=== PATIENT | female | born 1950 | race African-American/Black ===

== ENCOUNTER 2016-05-30 02:55 | Emergency (ER) | payer MEDICARE, OTHER ==
[~2016-05-30] VITALS: Ht 165.1 cm; Wt 180.1 kg
[2016-05-30 03:23] VITALS: BP 158/77
[2016-05-30] MEDS ORDERED: METFORMIN HCL500 M1 ORAL (03:31)
[2016-05-30] MEDS ORDERED: XOPENEX HFA15 GM IH (03:31)
[2016-05-30] MEDS ORDERED: MONTELUKAST SOD10 MG ORAL (03:31)
[2016-05-30] MEDS ORDERED: HYDROCHLOROTHIA25 MG ORAL (03:31)
[2016-05-30] MEDS ORDERED: CELEBREX200 MG ORAL (03:31)
[2016-05-30] MEDS ORDERED: MAPAP325 MG/10. PO (03:31)
[2016-05-30] MEDS ORDERED: NEXIUM5 MG ORAL (03:31)
[2016-05-30] MEDS ORDERED: IBUPROFEN200 MG ORAL (03:31)
[2016-05-30] MEDS ORDERED: ASPIRIN81 MG ORAL (03:31)
[2016-05-30] MEDS ORDERED: QVAR7.3 G2 IH (03:31)
--- NOTE | 2016-05-30 03:41 | Emergency Room Report ---
History of Present Illness General Chief Complaint: Neck Pain Source: Patient Present Illness HPI 66 YO F with severe right sided neck spasm for 2-3 days. Started when she woke up that morning. Worse with movement. Worse with looking to right. Denies fever /chills, headache, change in/blurry vision. Allergies: Coded Allergies: No Known Allergies (Unverified , 05/30/16) Patient History Past Medical History: HTN Past Surgical History: none Pertinent Family History: none Social History: Denies: alcohol use, drug use, smoking Now: No Immunizations: UTD Reviewed Nursing Documentation: PMH: Agreed, PSxH: Agreed Nursing Documentation-PMH Past Medical History: No History, Except For Hx Hypertension: Yes Hx Asthma: Yes Hx Diabetes: Yes Review of Systems All Other Systems: negative except mentioned in HPI Physical Exam Vital Signs Date Time Temp Pulse Resp B/P Pulse Ox O2 Delivery O2 Flow Rate FiO2 05/30/16 03:07 97.9 103 26 131/72 100 Room Air Sp02 EP Interpretation: reviewed, normal General Appearance: normal inspection, well appearing, no apparent distress, alert, GCS 15, non-toxic, obese Head: normocephalic, atraumatic Eyes: bilateral eye EOMI, bilateral eye PERRL ENT: normal ENT inspection, hearing grossly normal, normal voice Neck: normal inspection, full range of motion, supple, no bony tend, other - Severe spasm of right SCM, very tense compared to left. 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 VSS. Afebrile Toradol/valium given with significant improvement in ROM, comfort DC with Robaxin F/up with PMD Last Vital Signs Date Time Temp Pulse Resp B/P Pulse Ox O2 Delivery O2 Flow Rate FiO2 05/30/16 03:23 97.9 26 158/77 100 Room Air 05/30/16 03:07 103 Status: improved Disposition: HOME, SELF-CARE Scripts Methocarbamol* (ROBAXIN-750*) 750 Mg Tablet 750 MG PO TID, #30 TAB 0 Refills Prov: TOÑA BURGESS M.D. 05/30/16 Referrals: LEWIS ZAVALA (PCP) TOÑA BURGESS M.D. May 30, 2016 03:41
[2016-05-30] MEDS ORDERED: ROBAXIN-750750 MG PO (03:42)
[2016-05-30] MEDS ORDERED: Ketorolac 60mg Inj IM ONE (03:45)
[2016-05-30 04:23] VITALS: BP 161/75
[2016-05-30 04:24] VITALS: BP 158/77
== END 2016-05-30 04:27 | disposition home or self-care (01) ==
LOC: EMR 03:21
DX: R25.2 Cramp and spasm (principal); I10 Essential (primary) hypertension; E11.9 Type 2 diabetes mellitus without complications; Z87.09 Personal history of other diseases of the respiratory system
CPT/HCPCS: 96372; 99283

== ENCOUNTER 2016-12-16 12:48 | Emergency (ER) | payer MEDICARE, OTHER ==
[~2016-12-16] VITALS: Ht 165.1 cm; Wt 187.3 kg
[~2016-12-16 12:48] MED LIST: ASPIRIN81 MG ORAL; CELEBREX200 MG ORAL; HYDROCHLOROTHIA25 MG ORAL; IBUPROFEN200 MG ORAL; MAPAP325 MG/10. PO; METFORMIN HCL500 M1 ORAL; MONTELUKAST SOD10 MG ORAL; NEXIUM5 MG ORAL; QVAR7.3 G2 IH; ROBAXIN-750750 MG PO; XOPENEX HFA15 GM IH
[2016-12-16 12:59] VITALS: BP 194/90
[2016-12-16] MEDS ORDERED: DIOVAN80 MG ORAL (13:08)
[2016-12-16] MEDS ORDERED: ALBUTEROL2.5 MG/3 M INH (13:08)
[2016-12-16] MEDS ORDERED: NORCO 5-325 TA1 EACH ORAL ×2 (13:08→14:55)
[2016-12-16] MEDS ORDERED: Norco 5mg/325mg tab ORAL ONE (13:45)
[2016-12-16 14:30] VITALS: BP 169/74
[2016-12-16] MEDS ORDERED: KEFLEX500 MG ORAL (14:55)
[2016-12-16 15:02] VITALS: BP 169/74
--- NOTE | 2016-12-16 15:05 | Emergency Room Report ---
History of Present Illness General Chief Complaint: Pain Source: Patient Present Illness HPI 66-year-old female presents ED complaining of left leg pain and swelling x3 days. Denies trauma. Patient states he feels warm to touch. Pain is throbbing , 10 out of 10, nonradiating. Patient also has history of blood clots in her leg. Denies any chest pain or shortness of breath. No other aggravating or relieving factors. Denies any other associated symptoms Allergies: Coded Allergies: No Known Allergies (Unverified , 05/30/16) Patient History Past Medical History: DM, HTN, asthma Past Surgical History: none Pertinent Family History: none Social History: Denies: alcohol use, drug use, smoking Now: No Immunizations: UTD Reviewed Nursing Documentation: PMH: Agreed, PSxH: Agreed Nursing Documentation-PMH Hx Hypertension: Yes Hx Asthma: Yes Hx Diabetes: Yes Review of Systems All Other Systems: negative except mentioned in HPI Physical Exam Vital Signs Date Time Temp Pulse Resp B/P Pulse Ox O2 Delivery O2 Flow Rate FiO2 12/16/16 12:53 97.5 94 20 194/90 99 Room Air Sp02 EP Interpretation: reviewed, normal General Appearance: no apparent distress, alert, GCS 15, non-toxic, obese Head: normocephalic ENT: normal ENT inspection Neck: normal inspection Respiratory: chest non-tender, lungs clear, normal breath sounds, speaking full sentences Cardiovascular #1: regular rate, rhythm, no edema Gastrointestinal: normal bowel sounds, non tender, soft, non-distended, no guarding, no rebound Rectal: deferred Genitourinary: no CVA tenderness Musculoskeletal: swelling - LLE, tender Neurologic: alert, oriented x3, responsive, motor strength/tone normal, sensory intact, speech normal Psychiatric: normal inspection Skin: other - erythema/induration to LLE Lymphatic: normal inspection Medical Decision Making Diagnostic Impression: Primary Impression: Cellulitis and abscess of left lower extremity ER Course Hospital Course 66-year-old female presents to ED with redness, swelling to LLE Differential diagnoses include: Cellulitis, dermatitis, insect bite, abscess Clinical course Patient placed on stretcher. After initial history, physical exam reveals an obese female in no acute distress. On exam there is induration in erythema and swelling to left leg. Some pitting edema noted. Given pain medication with pain improved Doppler ultrasound of left leg shows no evidence of DVT. We will treat as cellulitis Diagnosis - cellulitis of LLE stable and discharged to home with prescription for [place], Keflex. Instructed to followup with PMD. Instructed return to ED if symptoms recur or worsen CT/MRI/US Diagnostic Results CT/MRI/US Diagnostic Results : Imaging Test Ordered: Doppler US Impression no evidence of DVT Last Vital Signs Date Time Temp Pulse Resp B/P Pulse Ox O2 Delivery O2 Flow Rate FiO2 12/16/16 14:30 88 18 169/74 100 Room Air 12/16/16 14:09 97.5 Status: improved Disposition: HOME, SELF-CARE Condition: Stable Scripts Cephalexin* (KEFLEX*) 500 Mg Capsule 500 MG ORAL Q6H, #28 CAP 0 Refills Prov: NICOLE CASTANEDA M.D. 12/16/16 Hydrocodone Bit/Acetaminophen 5-325* (NORCO 5-325*) 1 Each Tablet 1 TAB ORAL Q6H Y for For Pain, #10 TAB 0 Refills Prov: NICOLE CASTANEDA M.D. 12/16/16 Patient Instructions: Cellulitis, Coff-cx-Caon NICOLE CASTANEDA M.D. Dec 16, 2016 15:05
--- NOTE | 2016-12-17 12:26 | Diagnostic Imaging Report ---
APPROVED REPORT CPT Code: 04261 Present Symptoms Comments: Left leg pain and swelling Technically difficult study due to vessel depth (mid-thigh and calf area). Risk Factors Obesity LEFT LEG: Venous imaging reveals a patent deep venous system. There is no evidence of thrombus within the femoral, popliteal or tibial segments. The greater saphenous vein is also within normal limits. Doppler indicates normal spontaneous flow within these segments.
== END 2016-12-16 15:02 | disposition home or self-care (01) ==
LOC: EMR 13:28
DX: L02.416 Cutaneous abscess of left lower limb (principal); L03.116 Cellulitis of left lower limb; J45.909 Unspecified asthma, uncomplicated; E11.9 Type 2 diabetes mellitus without complications; I10 Essential (primary) hypertension
CPT/HCPCS: 93971; 99284